=== PATIENT | female | born 1965 | race Caucasian/White ===

== ENCOUNTER 2016-11-26 11:02 | Emergency (ER) | payer BC, OTHER ==
[2016-11-26] MEDS ORDERED: NORMAL SALINE 10 ML SYRINGE FLUSH IVP PRN (11:24)
[2016-11-26] MEDS ORDERED: Sodium Chloride 0.9% 1,000 ML PRIMARY IV ONE (11:24)
[2016-11-26 11:36] VITALS: RESP 16; TEMP 97.9
[2016-11-26 11:53] LABS: AMPHETAMINE SCREEN NEGATIVE (NEG); CANNABINOID SCREEN,URINE NEGATIVE (NEG); COCAINE SCREEN NEGATIVE (NEG); METHADONE URINE SCREEN NEGATIVE (NEG); METHAMPHETAMINES SCREEN,URINE NEGATIVE (NEG); OPIATE SCREEN,URINE NEGATIVE (NEG); URINE SAMPLE TYPE VOID; URINE SPECIFIC GRAVITY - MAN 1.014
[2016-11-26 11:53] LABS: BASOPHILS # (AUTO) 0.02 10*3/UL; BASOPHILS % (AUTO) 0.4 % (0-1); EOSINOPHILS # (AUTO) 0.05 10*3/UL; EOSINOPHILS % (AUTO) 0.9 % (0-8); HEMATOCRIT 41.4 % (37.0-47.0); HEMOGLOBIN 13.9 g/dL (12.0-16.0); LYMPHOCYTES # (AUTO) 1.25 10*3/uL; MEAN CORPUSCULAR HEMOGLOBIN 29.6 PG (27-31); MEAN CORPUSCULAR HGB CONC 33.6 g/dL (33-37); MEAN CORPUSCULAR VOLUME 88.3 FL (81-99); MEAN PLATELET VOLUME 10.6 FL (7.4-12.2); MONOCYTES # (AUTO) 0.43 10*3/UL (0.3-0.8); MONOCYTES % (AUTO) 7.9 % (5-15); NEUTROPHILS # (AUTO) 3.65 10*3/UL; NEUTROPHILS % (AUTO) 67.5 % (50-80); RED BLOOD COUNT 4.69 10^6/uL (4.20-5.40)
[2016-11-26 12:01] LABS: PLATELET MORPHOLOGY COMMENT NORMAL MORPHOLOGY (NORM); RBC MORPHOLOGY COMMENT NORMAL MORPHOLOGY (NORM); WBC MORPHOLOGY COMMENT NORMAL MORPHOLOGY (NORM)
--- NOTE | 2016-11-26 12:02 | EKG ---
[address] [address] Measurements Intervals [place] Rate: 70 P: 62 FL: 143 QRS: 47 QRSD: 75 T: 41 QT: 384 QTc: 405 Interpretive Statements SINUS RHYTHM No previous ECG available for comparison Electronically Signed On 11-27-16 08:58:45 MDT by Nixon De Jesus MD [email or web address]
[2016-11-26 12:34] LABS: BLOOD UREA NITROGEN 11 mg/dL (7-22); BUN/CREATININE RATIO 15.71 (6-20); CALCIUM 9.4 mg/dL (8.7-10.7); EST GLOMERULAR FILTRATION > 60 (>60 ml/min/1.73m(2)); SERUM ALBUMIN 4.4 g/dL (3.5-4.8)
--- NOTE | 2016-11-26 12:38 | DI ---
HISTORY: Neck pain. Possible trauma. COMPARISON: None available. TECHNIQUE: Contiguous axial unenhanced images of the cervical spine were obtained from the foramen m agnum through T1. These were reformatted into sagittal and coronal planes. FINDINGS: The vertebral bodies maintain anatomic alignment with no compression fractures or subluxat ion. The intervertebral disc spaces appear well preserved. No focal disc herniation is identified. The neural foramina are patent bilaterally with no evidence of any impingement. The spinal canal is not stenotic. There is no evidence of paravertebral soft tissue swelling. IMPRESSION: 1. No evidence of an acute cervical spine fracture or apparent injury.
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
== END 2016-11-26 13:20 | disposition home or self-care (01) ==
LOC: ER 11:02
DX: S06.0X0A Concussion without loss of consciousness, initial encounter (principal); G45.4 Transient global amnesia; R51 Headache; M54.2 Cervicalgia; V86.59XA Driver of other special all-terrain or other off-road motor vehicle injured in nontraffic accident, initial encounter
CPT/HCPCS: 70450; 72125; 80053; 80305; 80320; 82948; 83735; 85025; 85379; 93005; 93010; 99284; J7030